=== PATIENT | female | born 1950 | race Caucasian/White ===

== ENCOUNTER 2023-09-01 14:15 | Day surgery (SDC) | payer MEDICARE ==
[2023-09-01] MEDS ORDERED: BUPIVACAINE 0.5% VIAL IJ ONE (14:16)
[2023-09-01] MEDS ORDERED: XYLOCAINE-MPF 1% 5ML SDV IJ ONE (14:16)
[2023-09-01] MEDS ORDERED: Depo-Medrol 40 MG/ML IM ONE (14:16)
--- NOTE | 2023-09-01 16:32 | XRAY ---
Indication: Right SI joint injection. Intraoperative fluoroscopy provided for 8 seconds. 2 digital spot images submitted for interpretation demonstrates posterior needle tip projecting over right SI joint. Correlate with intraoperative findings/report.
--- NOTE | 2023-09-02 11:52 | XRAY ---
8 seconds of fluoroscopy was used for a right sacroiliac joint injection.
== END 2023-09-01 16:02 | disposition home or self-care (01) ==
LOC: SDC-PAIN 14:15
PROVIDERS: ATTEND Psychiatry & Neurology Pain Medicine
DX: M46.1 Sacroiliitis, not elsewhere classified (principal); R73.03 Prediabetes
CPT/HCPCS: 27096; 72170; 77002; 82947; G0260; J1030

== ENCOUNTER 2023-11-23 10:29 | Day surgery (SDC) | payer MEDICARE ==
[2023-11-23] MEDS ORDERED: Depo-Medrol 40 MG/ML IM ONE (10:30)
[2023-11-23] MEDS ORDERED: Sodium Chloride 0.9(Preservative Free) 10 ML IJ ONE (10:30)
[2023-11-23] MEDS ORDERED: XYLOCAINE-MPF 1% 5ML SDV IJ ONE (10:30)
[2023-11-23] MEDS ORDERED: DIPRIVAN 200 MG/20 ML IV ONE ×2 (13:39→14:05)
[2023-11-23] MEDS ORDERED: Lactated Ringers 1,000 ML IV ONE (13:59)
[2023-11-23] MEDS ORDERED: TRANDATE 20 MG/4 ML SYRINGE IV ONE (14:05)
--- NOTE | 2023-11-23 16:35 | XRAY ---
Indication: Caudal SARAI. Intraoperative fluoroscopy provided for 1 minute 15 seconds. 3 digital spot image submitted for interpretation demonstrates caudal needle tip projecting mid sacrum. Small amount of contrast injected for needle tip placement. Correlate with intraoperative findings/report.
--- NOTE | 2023-11-23 16:40 | XRAY ---
One minute and 15 seconds of fluoroscopy was used in surgery for a caudal SARAI.
== END 2023-11-23 14:35 | disposition home or self-care (01) ==
LOC: SDC-PAIN 10:29
PROVIDERS: ATTEND Psychiatry & Neurology Pain Medicine
DX: M54.16 Radiculopathy, lumbar region (principal); R73.03 Prediabetes
CPT/HCPCS: 62323; 72220; 77003; 82947; J1030; J2704; Q9966

== ENCOUNTER 2025-01-09 14:22 | Day surgery (SDC) | payer MEDICARE, OTHER ==
[2025-01-09] MEDS ORDERED: BUPIVACAINE 0.5% VIAL IJ ONE (14:23)
[2025-01-09] MEDS ORDERED: LIDOCAINE HCL 1% AMPUL 5 ML IJ ONE (14:23)
[2025-01-09] MEDS ORDERED: Depo-Medrol 40 MG/ML IM ONE (14:23)
--- NOTE | 2025-01-09 20:28 | XRAY ---
Indication: Bilateral greater trochanter bursa injection. Intraoperative fluoroscopy provided for 19 seconds. 3 digital spot image submitted for interpretation demonstrates needle tip projecting lateral to left and right greater trochanters. Small amount of contrast injected for both needle tip placement. Correlate with intraoperative findings/report.
--- NOTE | 2025-01-09 20:32 | XRAY ---
19 seconds of fluoroscopy were used in surgery for bilateral greater trochanteric bursa injections.
== END 2025-01-09 18:16 | disposition home or self-care (01) ==
LOC: SDC-PAIN 14:22
PROVIDERS: ATTEND Psychiatry & Neurology Pain Medicine
DX: M70.62 Trochanteric bursitis, left hip (principal); M70.61 Trochanteric bursitis, right hip; R73.03 Prediabetes; M75.52 Bursitis of left shoulder
CPT/HCPCS: 20610; 73521; 82947; Q9966